=== PATIENT | male | born 2000 | race African-American/Black ===

== ENCOUNTER 2022-12-02 15:26 | Emergency (ER) | payer OTHER ==
[2022-12-02 15:51] VITALS: BP 112/74; PULSE 78; RESP 20; TEMP 97; BMI 21.7
[2022-12-02] MEDS ORDERED: LACTATED RINGERS SOLUTION 1000 ML INFUS.BAG IV ONE (16:36)
[2022-12-02] MEDS ORDERED: ACETAMINOPHEN 1000 MG/100 ML BAG IVPB ONE (16:36)
[2022-12-02] MEDS ORDERED: ACETAMINOPHEN INJECTION 100 ML IVPB ONE (16:39)
[2022-12-02 17:30] LABS: BASO % 0.3 % (0-2.0); HEMATOCRIT 42.5 % (35.4-49); HEMOGLOBIN 13.6 GM/dL (11.7-16.9); LYMPH % 9.5 % (8-40); MCH 27.2 pg (25.7-33.7); MEAN CELL VOLUME 84.9 fl (80-96); MEAN PLT VOLUME 8.8 fl (7.5-11.1); MONO % 7.1 % (3.8-10.2); NEUT % 83.1 % (42.8-82.8); PLATELET COUNT 293 10^3/uL (134-434); RBC 5.01 M/mm3 (4.00-5.60); RDW 13.9 % (11.9-15.9); WHITE BLOOD COUNT 16.3 K/mm3 (4.0-10.0)
[2022-12-02 17:32] LABS: POTASSIUM 4.7 mmol/L (3.5-5.1)
[2022-12-02 17:34] LABS: CALCIUM 9.9 mg/dL (8.5-10.1)
[2022-12-02 17:35] LABS: ALBUMIN 4.7 g/dl (3.4-5.0); BLOOD UREA NITROGEN 9.5 mg/dL (7-18)
[2022-12-02 17:38] LABS: CREATININE 1.2 mg/dL (0.55-1.3)
[2022-12-02 17:39] LABS: BILIRUBIN,TOTAL 0.5 mg/dL (0.2-1); TOT PROT 8.4 g/dl (6.4-8.2)
[2022-12-02 17:46] LABS: LACTIC ACID 3.3 mmol/L (0.4-2.0)
== END 2022-12-02 16:30 | disposition left against medical advice (07) ==
LOC: JER 15:26
PROC: 3E033NZ Introduction of Analgesics, Hypnotics, Sedatives into Peripheral Vein, Percutaneous Approach (ICD-10-PCS; principal; 2022-12-02)
DX: F41.0 Panic disorder [episodic paroxysmal anxiety] (principal); R06.89 Other abnormalities of breathing; R51.9 Headache, unspecified; S01.112A Laceration without foreign body of left eyelid and periocular area, initial encounter; W19.XXXA Unspecified fall, initial encounter
CPT/HCPCS: 36415; 80053; 83605; 85025; 93005; 93010; 99284-25